=== PATIENT | male | born 1980 ===

== ENCOUNTER 2020-04-09 09:43 | Inpatient (IN) ==
[2020-04-09 11:28] LABS: Glucose,Urine (UA) 2+ mg/dL (Negative); Ketones,Urine Negative (Negative); Nitrite,Urine Negative (Negative); Protein,Urine 3+ MG/DL; Urine Appearance Clear (Clear); Urine Color Yellow (Yellow); Urine Specific Gravity 1.005 (1.001-1.035)
[2020-04-09 11:29] LABS: Bacteria,Urine Few /HPF (Few); Basophils # 0.1 10*3/uL (0.0-0.2); Basophils % 0.6 % (0.0-0.8); Bilirubin,Urine Negative (Negative); Blood, Urine Negative (Negative); Eosinophils # 0.7 10*3/uL (0.0-0.87); Eosinophils % 5.7 % (0.00-10.9); Hematocrit 23.5 VOL% (42.0-52.0); Hemoglobin 7.2 GM/DL (14.0-18.0); Immature Granulocytes % 0.9 %; Immature Granulocytes Absolute 0.11 #; Lymphocytes # 2.7 10*3/uL (1.4-4.0); Mean Corpuscular HGB Conc 30.6 GM/DL (32-36); Mean Corpuscular Volume 98.3 FL (87-102); Mean Platelet Volume 9.3 FL (9.6-12.0); Monocytes % 6.9 % (1.7-12.7); Neutrophils % 63.9 % (38.7-73.9); Platelet Count 252 T/CUMM (130-400); RBC,Urine Rare /HPF (0-4); Red Blood Count 2.39 MC/CUMM (3.8-5.5); Red Cell Distribution Width 14.9 % (9.3-17.3); Squamous Epithelial Cell,Urine Rare /HPF (0-10); Urine Urobilinogen < 2.0 EU/DL (0.2-1.0); WBC,Urine Rare /HPF (0-6)
[2020-04-09 11:55] LABS: Alanine Aminotransferase < 6 U/L (16-61); Albumin 2.8 G/DL (3.4-5.0); Alkaline Phosphatase 124 U/L (45-117); Aspartate Amino Transferase 20 U/L (0-37); Blood Urea Nitrogen 85 MG/DL (7-18); Carbon Dioxide 15 MMOL/L (21-32); Estimated Glom Filtration Rate 4 ML/MIN; Glucose 104 MG/DL (74-106); Osmolality,Calculated 306.3 MOS/KG (273-304); Potassium 4.6 MMOL/L (3.5-5.1); Sodium 141 MMOL/L (136-145); Total Protein 8.3 G/DL (6.4-8.3)
[2020-04-09 12:00] LABS: Barbiturates Screen,Urine Negative (Negative); Benzodiazepines Screen,Urine Negative (Negative); Cannabinoid Screen,Urine Negative (Negative); Opiate Screen,Urine Positive (Negative); Phencyclidine Screen,Urine Negative (Negative)
[2020-04-09] MEDS ORDERED: GLUCAGON 1 MG VIAL IM PRN (13:25)
[2020-04-09] MEDS ORDERED: ONDANSETRON 4 MG/2 ML VIAL IV PRN (13:25)
[2020-04-09] MEDS ORDERED: DEXTROSE 50% 25 GM/50 ML VIAL IV PRN (13:25)
[2020-04-09] MEDS ORDERED: ACETAMINOPHEN 325 MG TABLET PO PRN (13:25)
[2020-04-09 15:09] LABS: Folate 9.6 NG/ML (5.38-24.0)
[2020-04-09 15:11] LABS: % Iron Saturation 23.5 % (18-50); Ferritin 382.6 ng/ml (26-388)
[2020-04-09] MEDS: INSULIN LISPRO 100 UNIT/ML SUBCUT SCH (20:57)
[2020-04-09] MEDS: NICOTINE 14 MG/24 HR PATCH TRANSDERM SCH (21:52)
[2020-04-10 05:24] LABS: Basophils # 0.1 10*3/uL (0.0-0.2); Basophils % 0.5 % (0.0-0.8); Eosinophils # 0.6 10*3/uL (0.0-0.87); Eosinophils % 5.9 % (0.00-10.9); Hematocrit 20.9 VOL% (42.0-52.0); Hemoglobin 6.6 GM/DL (14.0-18.0); Immature Granulocytes % 0.9 %; Immature Granulocytes Absolute 0.08 #; Lymphocytes # 2.1 10*3/uL (1.4-4.0); Lymphocytes % 22.1 % (21.2-54.2); Mean Corpuscular HGB Conc 31.6 GM/DL (32-36); Mean Corpuscular Volume 95.9 FL (87-102); Monocytes % 8.7 % (1.7-12.7); Neutrophils % 61.9 % (38.7-73.9); Platelet Count 190 T/CUMM (130-400); Red Blood Count 2.18 MC/CUMM (3.8-5.5); Red Cell Distribution Width 14.7 % (9.3-17.3); White Blood Count 9.3 T/CUMM (4-12)
[2020-04-10 05:43] LABS: Calcium 5.6 MG/DL (8.5-10.1)
[2020-04-10 06:03] LABS: Alanine Aminotransferase < 6 U/L (16-61); Albumin 2.4 G/DL (3.4-5.0); Alkaline Phosphatase 97 U/L (45-117); Aspartate Amino Transferase 9 U/L (0-37); Blood Urea Nitrogen 85 MG/DL (7-18); Carbon Dioxide 14 MMOL/L (21-32); Estimated Glom Filtration Rate 4 ML/MIN; Glucose 86 MG/DL (74-106); HDL Cholesterol 35 MG/DL (40-60); Osmolality,Calculated 303.4 MOS/KG (273-304); Potassium 4.4 MMOL/L (3.5-5.1); Risk Ratio 3.74; Sodium 140 MMOL/L (136-145); Triglycerides 141 MG/DL (2-150); VLDL CHOLESTEROL 28.2 MG/DL
[2020-04-10 06:09] LABS: Calcium 5.2 MG/DL (8.5-10.1)
[2020-04-10] MEDS: INSULIN LISPRO 100 UNIT/ML SUBCUT SCH ×4 (07:29→20:38)
[2020-04-10] MEDS: NICOTINE 14 MG/24 HR PATCH TRANSDERM SCH (08:20)
[2020-04-10] MEDS ORDERED: PANTOPRAZOLE 40 MG TABLET PO SCH (09:00)
[2020-04-10] MEDS ORDERED: CALCIUM GLUCONATE 2,000 MG in SODIUM CHLORIDE 0.9% 100 ML IV ONE (11:00)
[2020-04-10] MEDS ORDERED: EPOETIN ALFA-EPBX 10,000 UNIT/ML VIAL IV PRN (13:30)
[2020-04-10] MEDS: CALCIUM GLUCONATE 2,000 MG in SODIUM CHLORIDE 0.9% 100 ML IV SCH (20:37)
[2020-04-11 05:59] LABS: Basophils # 0.1 10*3/uL (0.0-0.2); Basophils % 0.5 % (0.0-0.8); Eosinophils # 0.7 10*3/uL (0.0-0.87); Eosinophils % 6.2 % (0.00-10.9); Hematocrit 20.2 VOL% (42.0-52.0); Immature Granulocytes % 0.9 %; Immature Granulocytes Absolute 0.09 #; Lymphocytes # 2.6 10*3/uL (1.4-4.0); Lymphocytes % 25.2 % (21.2-54.2); Mean Corpuscular HGB Conc 31.2 GM/DL (32-36); Mean Corpuscular Volume 96.7 FL (87-102); Mean Platelet Volume 9.4 FL (9.6-12.0); Monocytes % 7.8 % (1.7-12.7); Neutrophils % 59.4 % (38.7-73.9); Platelet Count 183 T/CUMM (130-400); Red Blood Count 2.09 MC/CUMM (3.8-5.5); Red Cell Distribution Width 14.9 % (9.3-17.3); White Blood Count 10.5 T/CUMM (4-12)
[2020-04-11 06:09] LABS: Hemoglobin 6.3 GM/DL (14.0-18.0)
[2020-04-11 06:26] LABS: Alanine Aminotransferase < 9 U/L (16-61); Albumin 2.4 G/DL (3.4-5.0); Alkaline Phosphatase 96 U/L (45-117); Aspartate Amino Transferase 12 U/L (0-37); Blood Urea Nitrogen 90 MG/DL (7-18); Carbon Dioxide 14 MMOL/L (21-32); Estimated Glom Filtration Rate 4 ML/MIN; Glucose 81 MG/DL (74-106); Osmolality,Calculated 301.7 MOS/KG (273-304); Potassium 4.4 MMOL/L (3.5-5.1); Sodium 138 MMOL/L (136-145); Total Protein 6.7 G/DL (6.4-8.3)
[2020-04-11] MEDS ORDERED: SODIUM CHLORIDE 0.9% 1,000 ML IV PRN (06:26)
[2020-04-11 06:29] LABS: Calcium 5.3 MG/DL (8.5-10.1)
[2020-04-11] MEDS ORDERED: ceFAZolin 1,000 MG in SYRINGE 1 EACH IV ONE (06:30)
[2020-04-11] MEDS ORDERED: LIDOCAINE MPF 1% /EPI 30 ML VIAL ONE (06:48)
[2020-04-11] MEDS ORDERED: TISSUE ADHESIVE 1 EACH APPLICATOR TOP ONE (06:48)
[2020-04-11] MEDS ORDERED: HEPARIN 5,000 UNIT/1 ML VIAL ONE (06:48)
[2020-04-11] MEDS ORDERED: BUPIVACAINE MPF 0.25% 30 ML VIAL ONE (06:48)
[2020-04-11] MEDS ORDERED: fentaNYL 100 MCG/2 ML VIAL ONE (07:00)
[2020-04-11] MEDS ORDERED: MIDAZOLAM 2 MG/2 ML VIAL ONE (07:00)
[2020-04-11] MEDS ORDERED: CALCIUM CHLORIDE 1,000 MG/10 ML VIAL IV ONE (07:14)
[2020-04-11] MEDS ORDERED: SODIUM CHLORIDE 0.9% 250 ML IV SCH (07:30)
[2020-04-11] MEDS: INSULIN LISPRO 100 UNIT/ML SUBCUT SCH ×4 (07:41→20:05)
[2020-04-11] MEDS ORDERED: propofoL 200 MG/20 ML VIAL IV ONE (08:06)
[2020-04-11] MEDS ORDERED: LIDOCAINE 2% 5 ML VIAL ONE (08:06)
[2020-04-11] MEDS: NICOTINE 14 MG/24 HR PATCH TRANSDERM SCH (09:39)
[2020-04-11] MEDS: CALCIUM GLUCONATE 2,000 MG in SODIUM CHLORIDE 0.9% 100 ML IV SCH ×2 (09:40→16:40)
[2020-04-11 09:55] LABS: Hepatitis B Core IgM Quant 0.13 Index; Hepatitis B Surface Ag Quant < 0.10 Index; Hepatitis B Surface Ag Result Non-Reactive (NonReactive); Hepatitis C Virus Ab Quant 0.06 Index; Hepatitis C Virus Ab Result Non-Reactive (NonReactive)
[2020-04-11] MEDS ORDERED: HEPARIN 10,000 UNIT/10 ML VIAL IV PRN (14:07)
[2020-04-11] MEDS: hydrALAZINE 20 MG/1 ML VIAL IV PRN (17:00)
[2020-04-12 05:22] LABS: Basophils # 0.1 10*3/uL (0.0-0.2); Basophils % 0.7 % (0.0-0.8); Eosinophils # 0.5 10*3/uL (0.0-0.87); Hematocrit 24.6 VOL% (42.0-52.0); Immature Granulocytes Absolute 0.09 #; Lymphocytes # 2.1 10*3/uL (1.4-4.0); Lymphocytes % 22.4 % (21.2-54.2); Mean Corpuscular HGB Conc 32.9 GM/DL (32-36); Mean Corpuscular Volume 92.8 FL (87-102); Mean Platelet Volume 9.7 FL (9.6-12.0); Monocytes % 8.4 % (1.7-12.7); Neutrophils % 62.5 % (38.7-73.9); Platelet Count 173 T/CUMM (130-400); Red Cell Distribution Width 14.6 % (9.3-17.3); White Blood Count 9.2 T/CUMM (4-12)
[2020-04-12 05:29] LABS: Hemoglobin 8.1 GM/DL (14.0-18.0); Red Blood Count 2.65 MC/CUMM (3.8-5.5)
[2020-04-12 05:57] LABS: Alanine Aminotransferase < 6 U/L (16-61); Albumin 2.1 G/DL (3.4-5.0); Alkaline Phosphatase 100 U/L (45-117); Aspartate Amino Transferase 8 U/L (0-37); Blood Urea Nitrogen 56 MG/DL (7-18); Calcium 6.5 MG/DL (8.5-10.1); Carbon Dioxide 19 MMOL/L (21-32); Estimated Glom Filtration Rate 6 ML/MIN; Glucose 103 MG/DL (74-106); Potassium 3.6 MMOL/L (3.5-5.1); Sodium 136 MMOL/L (136-145); Total Protein 6.7 G/DL (6.4-8.3)
[2020-04-12] MEDS: INSULIN LISPRO 100 UNIT/ML SUBCUT SCH ×4 (07:49→20:49)
[2020-04-12] MEDS: NICOTINE 14 MG/24 HR PATCH TRANSDERM SCH (08:14)
[2020-04-12] MEDS: hydrALAZINE 20 MG/1 ML VIAL IV PRN (11:44)
[2020-04-12] MEDS: cloNIDine 0.1 MG TABLET PO SCH (20:31)
[2020-04-13] MEDS: NICOTINE 14 MG/24 HR PATCH TRANSDERM SCH (08:30)
[2020-04-13] MEDS: INSULIN LISPRO 100 UNIT/ML SUBCUT SCH ×2 (08:30→11:30)
[2020-04-13] MEDS: cloNIDine 0.1 MG TABLET PO SCH (11:30)
[2020-04-13] MEDS ORDERED: CALCIUM ACETATE 667 MG CAPSULE PO SCH (12:00)
[2020-04-13] MEDS ORDERED: hydrALAZINE 25 MG TABLET PO ONE (16:05)
[2020-04-13 16:06] VITALS: BP 177/91
== END 2020-04-13 16:52 | disposition home or self-care (01) | DRG 468 ==
LOC: N.ED 09:43 → N.EDINP 13:24 → N.5E 20:22
PROVIDERS: ADMIT Internal Medicine; ATTEND Internal Medicine